=== PATIENT | male | born 1950 | race Caucasian/White ===

== ENCOUNTER 2020-07-04 15:56 | Emergency (ER) | payer MEDICARE ==
[~2020-07-04] VITALS: Wt 113.4 kg
[~2020-07-04 15:56] MED LIST: ANTIVERT/2525 MG PO; ASPIR LOW81 MG PO; ASPIRIN325 MG PO; ATIVAN0.5 MG PO; AUGMENTIN 875875 MG PO; BUSPIRONE10 MG PO; CARVEDILOL25 MG PO; CELEXA20 MG PO; CIPROFLOXACIN250 M2 PO; CLOPIDOGREL BIS75 MG PO; COREG25 MG PO; CRESTOR40 MG PO; DOXYCYCLINE100 M3 PO; FISH OIL 10001000 MG PO; FISH OIL1000 MG PO; GLUCOTROL5 MG PO; IMDUR ER30 MG PO; LANTUS100 U/ML SC; LIPITOR80 MG PO; LISINOPRIL40 MG PO; MECLIZINE25 MG PO; METFORMIN850 MG PO; Meclizine25 MG PO; NITROSTAT0.4 MG SL; PRILOSEC20 M1 PO; PRINIVIL20 MG PO; PROVENTIL0.09 MG/A1 INH; SERTRALINE50 MG PO; TRICOR48 MG PO; ZESTRIL40 MG PO
[2020-07-04 17:16] LABS: BASO % 0.7 % (0.0-1.0); EOS # 0.1 10*3/uL (0.0-0.4); EOS % 2.9 % (1.0-4.0); HEMATOCRIT 38.8 % (42.0-52.0); LYMPH % 21.1 % (27.0-41.0); MEAN CELL VOLUME 90.7 fl (80.0-94.0); MEAN CORPUSCULAR HGB 28.5 pg (27.0-31.0); MEAN CORPUSCULAR HGB CONC 31.4 g/dl (33.0-37.0); MEAN PLATELET VOLUME 10.7 fl (9.6-12.3); MONO # 0.3 10*3/uL (0.1-1.0); MONO % 5.5 % (3.0-9.0); NEUT # 3.1 10*3/uL (2.3-7.9); NEUT % 69.1 % (47.0-73.0); PLATELET COUNT AUTOMATED 206 10*3/uL (130-400); RED BLOOD COUNT 4.28 10*6/uL (4.50-5.90); RED CELL DISTRI WIDTH 13.4 % (0-14.5); WHITE BLOOD COUNT 4.5 10*3/uL (4.8-10.8)
[2020-07-04 17:40] LABS: ALBUMIN 3.5 gm/dl (3.1-4.5); BUN 23 mg/dl (7-24); CHLORIDE 112 mmol/L (98-107); LIPASE 278 U/L (73-393); POTASSIUM 4.3 mmol/L (3.5-5.1); SGOT/AST 24 IU/L (3-35); SGPT/ALT 36 U/L (12-78); SODIUM 144 mmol/L (136-145); TOTAL PROTEIN 6.6 gm/dL (6.4-8.2)
[2020-07-04 17:41] LABS: ALKALINE PHOSPHATASE 70 U/L (45-117)
[2020-07-04 17:42] LABS: ACT PARTIAL THROMBO TIME 24.9 SECONDS (20.0-32.1); INTERNATIONAL NORM RATIO 1.1 (2.0-3.5)
[2020-07-04 17:46] LABS: TROPONIN I < 0.015 ng/ml (<0.045)
== END 2020-07-04 19:17 | disposition home or self-care (01) ==
LOC: ED 15:56
PROVIDERS: Nurse Practitioner Family
DX: R42 Dizziness and giddiness (principal); E11.9 Type 2 diabetes mellitus without complications; I10 Essential (primary) hypertension; I25.10 Atherosclerotic heart disease of native coronary artery without angina pectoris; F41.9 Anxiety disorder, unspecified; Z88.8 Allergy status to other drugs, medicaments and biological substances; Z79.899 Other long term (current) drug therapy; Z79.82 Long term (current) use of aspirin

== ENCOUNTER → 2020-10-25 | Outpatient (CLI) | payer OTHER | END | disposition home or self-care (01) | LOC: COVID19 12:31 | PROVIDERS: ATTEND Internal Medicine | DX: Z20.822 Contact with and (suspected) exposure to COVID-19 (principal) ==

== ENCOUNTER → 2021-01-19 | Outpatient (CLI) | payer OTHER | END | disposition home or self-care (01) | LOC: COVID19 08:13 | PROVIDERS: ATTEND Internal Medicine | DX: Z11.52 Encounter for screening for COVID-19 (principal) ==